=== PATIENT | male | born 1940 | race Caucasian/White ===

== ENCOUNTER 2017-08-09 07:08 | Day surgery (SDC) | payer MEDICARE ==
[~2017-08-09] VITALS: Ht 182.9 cm; Wt 86.2 kg
--- NOTE | ~2017-08-09 | EGD ---
EGD REPORT [facility] [address] [place] 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 Estimated blood loss: None. Procedure: Pre-Anesthesia Assessment: - ASA Grade Assessment: III - A patient with severe systemic disease. After obtaining informed consent, the endoscope was passed under direct vision. Throughout the procedure, the patient's blood pressure, pulse, and oxygen saturations were monitored continuously. The Endoscope was introduced through the mouth, and advanced to the second part of duodenum. The GIF [id number] was introduced through the mouth, and advanced to the second part of duodenum. Findings: Endoscopic Finding : The examined esophagus was endoscopically normal. The entire examined stomach was endoscopically normal. The examined duodenum was endoscopically normal. The cardia and gastric fundus were normal on retroflexion. Endosonographic Finding : An irregular mass was identified in the pancreatic body. The mass was hypoechoic. The mass measured 25 mm by 22 mm in maximal cross-sectional diameter. The endosonographic borders were well-defined. An intact interface was seen between the mass and the portal vein, superior mesenteric vein, splenoportal confluence, celiac trunk and superior mesenteric artery suggesting a lack of invasion. Fine needle aspiration was performed. Color Doppler imaging was utilized prior to needle puncture to confirm a lack of significant vascular structures within the needle path. Five passes were made with the 22 gauge needle using a transgastric approach. Final cytology results are pending. The pancreatic duct had a dilated endosonographic appearance in the tail of the pancreas. There was no sign of significant endosonographic abnormality in the pancreatic head. There was no sign of significant endosonographic abnormality in the EGD REPORT [place] [id number] [facility] [place]. [address] NAME: ENRICO URIBE : 44 STATUS : REG [facility] PAT#: [id number] AGE: 76 ADM/REG DATE : 08/09/17 MR#: [id number] REPORT SERV DATE: 08/09/17 DICTATED BY: LEAH YAN DATE: 08/09/17 REPORT STATUS : Draft [facility]ANSCRIBED BY: [facility] DATE: 08/09/17 common bile duct. An unremarkable gallbladder was identified. No lymphadenopathy seen. A round mass was identified endosonographically in the left lobe of the liver. The mass was hypoechoic. The mass measured 16 by 12 mm in maximal cross-sectional diameter. The endosonographic borders were well-defined. Fine needle aspiration was performed. Color Doppler imaging was utilized prior to needle puncture to confirm a lack of significant vascular structures within the needle path. Four passes were made with the 25 gauge needle using a transgastric approach. Final cytology results are pending. There was no sign of significant endosonographic abnormality in the examined duodenum. Endosonographic images of the stomach were unremarkable. There was no sign of significant endosonographic abnormality in the esophagus. Impression: - Normal esophagus. - Normal stomach. - Normal examined duodenum. - A mass was identified in the pancreatic body. - The pancreatic duct had a dilated endosonographic appearance in the tail of the pancreas. - There was no sign of significant pathology in the pancreatic head. - There was no sign of significant pathology in the common bile duct. - A mass was found in the left lobe of the liver. - There was no sign of significant pathology in the examined duodenum. - Endosonographic images of the stomach were unremarkable. - There was no sign of significant pathology in the esophagus. Recommendation: - Return to previous diet. - Await cytology results. - Continue present medications. Procedure Code(s): --- Professional --- 81437, Esophagogastroduodenoscopy, flexible, transoral; with transendoscopic ultrasound-guided intramural or transmural fine needle aspiration/biopsy(s) (includes endoscopic ultrasound examination of the esophagus, stomach, and either the duodenum or a surgically altered stomach where the jejunum is examined distal to the anastomosis) EGD REPORT [facility] [address] [place]. [address] NAME: ENRICO URIBE : 44 STATUS : REG [facility] PAT#: [id number] AGE: 76 ADM/REG DATE : 08/09/17 MR#: [id number] REPORT SERV DATE: 08/09/17 DICTATED BY: LEAH YAN DATE: 08/09/17 REPORT STATUS : Draft TRANSCRIBED BY: [employer] DATE: 08/09/17 Diagnosis Code(s): --- Professional --- K86.8, Other specified diseases of pancreas R93.3, Abnormal findings on diagnostic imaging of other parts of digestive tract R16.0, Hepatomegaly, not elsewhere classified CPT copyright 2013 [employer]. All rights reserved. The codes documented in this report are preliminary and upon game manager review may be revised to meet current compliance requirements. LEAH YAN, 08/09/2017 9:35 AM Number of Addenda: 0 Note Initiated On: 08/09/2017 8:51 AM Scope Withdrawal Time 0 hours 0 minutes 0 seconds [address] [place] [id number]
[~2017-08-09 07:08] MED LIST: CALAN80 MG PO; COZ50 PO; GLUCOPHAGE1000 MG PO; HYT2 PO; ISOPTIN SR180 MG PO; LOP25 PO; TOUJEO SQ; ULTRAM50 PO; ZOCOR20 PO
== END 2017-08-09 23:59 | disposition home or self-care (01) ==
LOC: DMU 07:08
PROVIDERS: Internal Medicine Gastroenterology
PROC: 0FBG4ZX Excision of Pancreas, Percutaneous Endoscopic Approach, Diagnostic (ICD-10-PCS; 2017-08-09)
PROC: 0FB24ZX Excision of Left Lobe Liver, Percutaneous Endoscopic Approach, Diagnostic (ICD-10-PCS; principal; 2017-08-09 09:00)
DX: C25.1 Malignant neoplasm of body of pancreas (principal); K86.89 Other specified diseases of pancreas; I10 Essential (primary) hypertension; E11.42 Type 2 diabetes mellitus with diabetic polyneuropathy; F32.9 Major depressive disorder, single episode, unspecified; M19.90 Unspecified osteoarthritis, unspecified site; Z98.890 Other specified postprocedural states
CPT/HCPCS: 82962; 88173; 88305; C1725